=== PATIENT | female | born 1975 | race Caucasian/White ===

== ENCOUNTER 2016-06-28 19:35 | Emergency (ER) | payer BC ==
[2016-06-28] MEDS ORDERED: Sodium Chloride 0.9% 10 ML Syringe FLUSH PRN (20:16)
[2016-06-28] MEDS ORDERED: Sodium Chloride 0.9% 1,000 ML IV ONE (20:19)
[2016-06-28] MEDS ORDERED: LORazepam 2 MG/ML MDV IVPUSH ONE (20:19)
--- NOTE | 2016-06-28 20:22 | EDM.PDOC ---
ED HISTORY OF PRESENT ILLNESS - General Chief Complaint: Cardiovascular Problem Stated Complaint: RAPID HEART BEAT TINGLING IN FINGERS Time Seen by Provider: 06/28/16 19:57 Source of Information: Reports: Patient History Limitations: Reports: No limitations - History of Present Illness INITIAL COMMENTS - FREE TEXT/NARRATIVE: Patient is a 41-year-old female presents ED complaining of elevated heart rate, intermittent dizziness, and paresthesias to her fingers bilaterally. Patient states while reading to her kids this evening she developed these symptoms. States symptoms have been intermittent since onset. She presents to the ED for further evaluation. She's had no prior history of elevated heart rate as such. She denies any increased stress lately. States she is currently on her menstrual cycle. States this is her third day and has been taking vitex an over -the-counter herbal substance which has tachycardia as adverse side effects. States she's been taking this medication for quite some time with no prior history of similar symptoms. With onset she denies any chest pain, diaphoresis , pain in the neck/shoulder/arm/back, shortness of breath, fever/chills, swelling to her lower legs, or history of PE/DVT. States she's had some heartburn for the last few days. States the discomfort comes on in the evening and is relieved by the morning. Denies any unusual foods that may have precipitated the onset of heartburn. She has no previous past medical history. No additional medications. Surgical history includes D&C for miscarriage. Does not smoke, occasionally drinks alcohol, denies recreational drug use. Of note patient states she had subclinical hyperthyroidism while . States her mother has a history of hyperthyroidism. 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 Denies: Chest pain, Blood pressure problem, Dyspnea on exertion, Edema, Orthopnea, PND, Syncope GI/Abdominal: Reports: No symptoms : Reports: no symptoms Musculoskeletal: Reports: no symptoms Neurological: Reports: Dizziness (intermittent), Tingling (fingers bilaterally) ED EXAM, GENERAL - Physical Exam Exam: See Below Exam Limited By: No limitations General Appearance: alert, WD/WN, anxious Eye Exam: bilateral eye: PERRL Ears: hearing grossly normal Nose: normal inspection Throat/Mouth: Normal inspection, Normal oropharynx, Normal voice, No airway compromise Neck: normal inspection, supple, non-tender, full range of motion. No: lymphadenopathy (L), lymphadenopathy (R) Respiratory/Chest: no respiratory distress, lungs clear, normal breath sounds, no accessory muscle use Cardiovascular: normal peripheral pulses, no edema, no JVD, no murmur, tachycardia Peripheral Pulses: 2+: radial (L) GI/Abdominal: normal bowel sounds, soft, non tender, no organomegaly, no distention Back Exam: normal inspection Extremities: normal inspection, normal range of motion, non-tender, no pedal edema, normal capillary refill Neurological: alert, oriented, normal cognition, no motor/sensory deficits Psychiatric: normal affect, normal mood Skin Exam: Warm, Dry, Intact, Normal color, No rash Course - Vital Signs Last Recorded V/S: Last Vital Signs Temp 98 F 06/28/16 19:42 Pulse 93 06/28/16 21:30 Resp 16 06/28/16 21:30 BP 114/97 H 06/28/16 21:30 Pulse Ox 97 06/28/16 21:30 - Orders/Labs/Meds Orders: Active Orders 24 hr Category Date Time Status EKG 12 Lead [EKG Documentation Completion] [RC] STAT Care 06/28/16 20:02 Active Peripheral IV Care [RC] . DIRECTED Care 06/28/16 20:17 Active Chest 2V [CR] Stat Exams 06/28/16 20:17 Taken Peripheral IV Insertion Adult [OM.PC] Stat Oth 06/28/16 20:17 Ordered Labs: Laboratory Tests 06/28/16 06/28/16 06/28/16 Range/Units 20:20 20:20 20:30 WBC 7.46 (3.98-10.04) K/mm3 RBC 4.44 (3.98-5.22) M/mm3 Hgb 14.3 (11.2-15.7) gm/L Hct 41.2 (34.1-44.9) % MCV 92.8 (79.4-94.8) fl MCH 32.2 (25.6-32.2) pg MCHC 34.7 (32.2-35.5) g/dl RDW Std Deviation 41.7 (36.4-46.3) fL Plt Count 351 (182-369) K/mm3 MPV 9.0 L (9.4-12.3) fl Neut % (Auto) 52.8 (34.0-71.1) % Lymph % (Auto) 38.7 (19.3-51.7) % [place] % (Auto) 6.4 (4.7-12.5) % Eos % (Auto) 1.7 (0.7-5.8) Baso % (Auto) 0.1 (0.1-1.2) % Neut # (Auto) 3.93 (1.56-6.13) K/mm3 Lymph # (Auto) 2.89 (1.18-3.74) K/mm3 [place] # (Auto) 0.48 H (0.24-0.36) K/mm3 Eos # (Auto) 0.13 (0.04-0.36) K/mm3 Baso # (Auto) 0.01 (0.01-0.08) K/mm3 Sodium 139 (136-145) mEq/L Potassium 3.2 L (3.5-5.1) mEq/L Chloride 101 (98-107) mEq/L Carbon Dioxide 24 (21-32) mEq/L Anion Gap 17.2 H (5-15) BUN 25 H (7-18) mg/dL Creatinine 0.9 (0.55-1.02) mg/dL Est Cr Clr Drug Dosing 78.56 mL/min Estimated GFR (MDRD) > 60 (>60) mL/min BUN/Creatinine Ratio 27.8 H (14-18) Glucose 103 (74-106) mg/dL Calcium 8.9 (8.5-10.1) mg/dL Total Bilirubin 0.4 (0.2-1.0) mg/dL AST 16 (15-37) U/L ALT 24 (14-59) U/L Alkaline Phosphatase 67 (46-116) U/L Troponin I < 0.017 (0.00-0.056) ng/mL Total Protein 7.5 (6.4-8.2) g/dl Albumin 4.1 (3.4-5.0) g/dl Globulin 3.4 gm/dL Albumin/Globulin Ratio 1.2 (1-2) TSH 3rd Generation 7.979 H (0.358-3.74) uIU/mL Urine Color (Yellow) Urine Appearance (Clear) Urine pH (5.0-8.0) Ur Specific [place] (1.005-1.030) Urine Protein (Negative) Urine Glucose (UA) (Negative) Urine Ketones (Negative) Urine Occult Blood (Negative) Urine Nitrite (Negative) Urine Bilirubin (Negative) Urine Urobilinogen (0.2-1.0) Ur Leukocyte Esterase (Negative) Urine RBC (0-5) /hpf Urine WBC (0-5) /hpf Ur Epithelial Cells Ur Squamous Epith Cells (0-5) /hpf Urine Bacteria (FEW) /hpf Urine Mucus (FEW) /hpf Urine Opiates Screen Negative (NEGATIVE) Ur Buprenorphine Scrn Negative (NEGATIVE) Ur Oxycodone Screen Negative (NEGATIVE) Urine Methadone Screen Negative (NEGATIVE) Ur Propoxyphene Screen Negative (NEGATIVE) Ur Barbiturates Screen Negative (NEGATIVE) Ur Tricyclics Screen Negative (NEGATIVE) Ur Phencyclidine Scrn Negative (NEGATIVE) Ur Amphetamine Screen Negative (NEGATIVE) U Methamphetamines Scrn Negative (NEGATIVE) U Benzodiazepines Scrn Negative (NEGATIVE) U Cocaine Metab Screen Negative (NEGATIVE) U Marijuana (THC) Screen Negative (NEGATIVE) 06/28/16 Range/Units 20:30 WBC (3.98-10.04) K/mm3 RBC (3.98-5.22) M/mm3 Hgb (11.2-15.7) gm/L Hct (34.1-44.9) % MCV (79.4-94.8) fl MCH (25.6-32.2) pg MCHC (32.2-35.5) g/dl RDW Std Deviation (36.4-46.3) fL Plt Count (182-369) K/mm3 MPV (9.4-12.3) fl Neut % (Auto) (34.0-71.1) % Lymph % (Auto) (19.3-51.7) % [place] % (Auto) (4.7-12.5) % Eos % (Auto) (0.7-5.8) Baso % (Auto) (0.1-1.2) % Neut # (Auto) (1.56-6.13) K/mm3 Lymph # (Auto) (1.18-3.74) K/mm3 [place] # (Auto) (0.24-0.36) K/mm3 Eos # (Auto) (0.04-0.36) K/mm3 Baso # (Auto) (0.01-0.08) K/mm3 Sodium (136-145) mEq/L Potassium (3.5-5.1) mEq/L Chloride (98-107) mEq/L Carbon Dioxide (21-32) mEq/L Anion Gap (5-15) BUN (7-18) mg/dL Creatinine (0.55-1.02) mg/dL Est Cr Clr Drug Dosing mL/min Estimated GFR (MDRD) (>60) mL/min BUN/Creatinine Ratio (14-18) Glucose (74-106) mg/dL Calcium (8.5-10.1) mg/dL Total Bilirubin (0.2-1.0) mg/dL AST (15-37) U/L ALT (14-59) U/L Alkaline Phosphatase (46-116) U/L Troponin I (0.00-0.056) ng/mL Total Protein (6.4-8.2) g/dl Albumin (3.4-5.0) g/dl Globulin gm/dL Albumin/Globulin Ratio (1-2) TSH 3rd Generation (0.358-3.74) uIU/mL Urine Color Light yellow (Yellow) Urine Appearance Clear (Clear) Urine pH 6.5 (5.0-8.0) Ur Specific [place] 1.010 (1.005-1.030) Urine Protein Negative (Negative) Urine Glucose (UA) Negative (Negative) Urine Ketones Negative (Negative) Urine Occult Blood 3+ H (Negative) Urine Nitrite Negative (Negative) Urine Bilirubin Negative (Negative) Urine Urobilinogen 0.2 (0.2-1.0) Ur Leukocyte Esterase 1+ H (Negative) Urine RBC 0-5 (0-5) /hpf Urine WBC 0-5 (0-5) /hpf Ur Epithelial Cells Not Reportable Ur Squamous Epith Cells 0-5 (0-5) /hpf Urine Bacteria Few (FEW) /hpf Urine Mucus Not seen (FEW) /hpf Urine Opiates Screen (NEGATIVE) Ur Buprenorphine Scrn (NEGATIVE) Ur Oxycodone Screen (NEGATIVE) Urine Methadone Screen (NEGATIVE) Ur Propoxyphene Screen (NEGATIVE) Ur Barbiturates Screen (NEGATIVE) Ur Tricyclics Screen (NEGATIVE) Ur Phencyclidine Scrn (NEGATIVE) Ur Amphetamine Screen (NEGATIVE) U Methamphetamines Scrn (NEGATIVE) U Benzodiazepines Scrn (NEGATIVE) U Cocaine Metab Screen (NEGATIVE) U Marijuana (THC) Screen (NEGATIVE) Meds: Medications Discontinued Medications Generic Name Dose Route Start Last Admin Trade Name Freq PRN Reason Stop Dose Admin Sodium Chloride 1,000 mls @ 999 mls/hr 06/28/16 20:19 06/28/16 20:35 Normal Saline IV 06/28/16 21:19 999 mls/hr ONETIME ONE Administration Lorazepam 1 mg 06/28/16 20:19 06/28/16 20:33 Ativan IVPUSH 06/28/16 20:20 1 mg ONETIME ONE Administration Sodium Chloride 10 ml 06/28/16 20:16 06/28/16 20:33 Saline Flush FLUSH 10 ml ASDIRECTED PRN Administration Keep Vein Open - Re-Assessments/Exams Free Text/Narrative Re-Assessment/Exam: 06/28/16 20:24 Ordered peripheral IV with ns 999mls/hr and ativan 1mg IVP. Initial labs and studies include: CBC, C14, CRP, Troponin, TSH, UA w/micro, and urine drug tox. EKG: Sinus rhythm 97 with normal p axis, pr interval 144, QTc 463, no acute st changes noted. Patients heart rate has been fluctuating from 95 bpm to 133 bpm intermittently. While being examined patient would appear to get anxious and heart rate would increase. This would only occur for a short period of time. She had not pain to the chest during episodes. Patient has parathesias to the fingers bilaterally. Chest x-ray reviewed with Dr. Green. No acute abnormalities noted. Final interpretation pending. Labs reviewed: CBC essentially normal. Na 139, k+3.2, ag 17.2, cr 0.9, Troponin WNL, TSH 7.979, UA neg for infection, urine drug negative. 06/28/16 21:13 Reassessment, patient is resting quite comfortable in the E.D. HR has been stable in the 90's. She denies any palpations. Discussed with her options to treat the tachycardia. Suspect this is from the vitex with adverse side effects revealing tachycardia. She has been taking this for quite some time with no history of tachycardia. Offered starting the patient on metoprolol 12.5mg twice a day to decrease heart rate as well until evaluated by PCP. She refuses to be started on another medication and will stop taking the vitex to see if this is the culprit. In addition will have her stop drinking her 2 cups of tea everyday and any other caffeinated beverages. Patient understands and agrees with plan. Will discharge patient home with instructions as documented. Departure - Departure Time of Disposition: 21:21 Disposition: Home, Self-Care 01 Condition: good Clinical Impression: Tachycardia, Intermittent palpitations Instructions: Sinus Tachycardia, Palpitations, [id number] Referrals: Alma Rhodes MD [Primary Care Provider] - Forms: ED Department Discharge Additional Instructions: As discussed labs revealed TSH 7.979 which means you have a hypothyroid. See PCP to discuss treatment. You presented to the E.D. with elevated HR of 133 with variable rates. Symptoms you were experiencing parathesias, increased breathing rate, and restlessness (anxious) maybe contributed to panic attack. Unsure if this maybe the etiology but is one differential. In addition you are taking a OTC medication vitex that notes tachycardia as one of the adverse side effects with taking. Again you have been taking this medication for quite sometime with no issues that makes unclear if this is the contributing cause. So as discussed will have you stop taking the vitex and see your PCP in the next 2 days for reevaluation. Keep a log when tachycardia/palpations develop and how long they persist. Refrain from caffeine intake. Return to the E.D. if you develop any new or worsening symptoms. No driving this evening since receiving a sedative medication in the E.D. - My Orders Last 24 Hours: My Active Orders 06/28/16 20:02 EKG 12 Lead [EKG Documentation Completion] [RC] STAT 06/28/16 20:17 Peripheral IV Care [RC] . DIRECTED Chest 2V [CR] Stat Peripheral IV Insertion Adult [OM.PC] Stat - Assessment/Plan Last 24 Hours: My Active Orders 06/28/16 20:02 EKG 12 Lead [EKG Documentation Completion] [RC] STAT 06/28/16 20:17 Peripheral IV Care [RC] . DIRECTED Chest 2V [CR] Stat Peripheral IV Insertion Adult [OM.PC] Stat
[2016-06-28 21:37] VITALS: BP 114/97
--- NOTE | 2016-06-29 09:51 | CR ---
Chest: Two views of the chest were obtained. Comparison: No previous study. Heart size and mediastinum are normal. Lungs are clear with no acute infiltrates. Bony structures are within normal limits for the patient's age. Impression: 1. Nothing acute is identified on two-view chest x-ray. Diagnostic code #1
== END 2016-06-28 21:42 | disposition home or self-care (01) ==
LOC: JD.ED 19:35
DX: R00.2 Palpitations (principal); R00.0 Tachycardia, unspecified; R20.9 Unspecified disturbances of skin sensation
CPT/HCPCS: 36415; 71020; 80053; 80306; 81001; 84443; 84484; 85025; 93005; 96361; 96374; 99285; J2060; J7040; J7050; 99284